=== PATIENT | female | born 1965 | race Caucasian/White ===

== ENCOUNTER 2020-02-18 21:07 | Emergency (ER) | payer MEDICAID ==
[~2020-02-18] VITALS: Ht 165.1 cm; Wt 59.0 kg
[2020-02-18 21:15] VITALS: BP_SYST 125
[2020-02-18] MEDS ORDERED: MORPHINE 2 MG/ML INJ. SYRINGE IM ONE (21:30)
[2020-02-18] MEDS ORDERED: AMOXICILLIN 500 MG CAPSULE PO ONE (21:30)
[2020-02-18 21:45] VITALS: BP_SYST 126
== END 2020-02-18 21:45 | disposition home or self-care (01) ==
LOC: SED 21:07
DX: K04.7 Periapical abscess without sinus (principal); F17.290 Nicotine dependence, other tobacco product, uncomplicated; Z71.6 Tobacco abuse counseling
CPT/HCPCS: 96372; 99283; J2270

== ENCOUNTER 2022-02-18 12:44 | Emergency (ER) | payer MEDICAID ==
[~2022-02-18] VITALS: Ht 162.6 cm; Wt 63.5 kg
[2022-02-18 12:52] VITALS: BP_SYST 139
[2022-02-18] MEDS ORDERED: cefTRIAXone 1 GM in LIDOCAINE 1%, 20 ML MDV 2.1 ML IM ONE (13:00)
[2022-02-18] MEDS ORDERED: CEPH-548 PO (13:02)
[2022-02-18 13:18] VITALS: BP_SYST 139
== END 2022-02-18 13:19 | disposition home or self-care (01) ==
LOC: SED 12:44
DX: S60.562A Insect bite (nonvenomous) of left hand, initial encounter (principal); S60.561A Insect bite (nonvenomous) of right hand, initial encounter; Z79.899 Other long term (current) drug therapy; W57.XXXA Bitten or stung by nonvenomous insect and other nonvenomous arthropods, initial encounter; Y93.89 Activity, other specified; Y92.89 Other specified places as the place of occurrence of the external cause; Y99.8 Other external cause status
CPT/HCPCS: 99283; 96372; J0696; J2001